=== PATIENT | female | born 1995 | race Caucasian/White ===

== ENCOUNTER 2017-06-12 19:37 | Inpatient (IN) | payer OTHER ==
--- NOTE | 2017-06-12 21:56 | RAD ---
INDICATION: Preeclampsia Comparison: First trimester ultrasound dated December 25, 2016. Multiple transabdominal real time images of the third trimester gravid uterus were obtained. This exam demonstrates a single intrauterine in the Cephalic presentation. heart and limb motion were noted. The heart rate was 146 beats per minute. The placenta was located anterior. The cervix is closed measuring 5.3 cm in length. The amniotic fluid volume appeared to be within normal limits measuring 11 cm. Biparietal diameter (cm) 8.6 which corresponds to a gestational age of 34 weeks and 4 days. Head circumference (cm) 31.4 which corresponds to a gestational age of 35 weeks and 2 days. abdominal circumference(cm) 30.2 which corresponds to a gestational age of 34 weeks and 2 day. femur length (cm) 6.9 which corresponds to a gestational age of 35 weeks and 2 days. The composite estimated gestational age was 34 weeks and 6 days. The estimated weight at this time is 2472 grams +/- 361 grams. The cardiac area, renal area, stomach, bladder and three-vessel cord are visualized and appear to be within normal limits. IMPRESSION: Normal appearing single intrauterine gestation with composite growth parameters corresponding to 34 weeks and 6 days.
[2017-06-12] MEDS ORDERED: Dinoprostone* 10 MG VAG.SUPP VAGINAL ONE (22:18)
[2017-06-12] MEDS ORDERED: Zolpidem TAB* 5 MG PO PRN (23:10)
[2017-06-13] MEDS: ValACYclovir (*) 500 MG TAB PO SCH (08:29)
[2017-06-13] MEDS: Sertraline* 25 MG TAB PO SCH (08:30)
[2017-06-13 08:39] LABS: Hematocrit 39 % (35-47); Hemoglobin 13.2 g/dl (12.0-16.0); Mean Corpuscular HGB Conc 34 g/dl (31-36); Mean Corpuscular Hemoglobin 30 pg (27-31); Mean Corpuscular Volume 90 fL (80-97); Mean Platelet Volume 9 um3 (7.4-10.4); Red Blood Count 4.35 10^6/ul (4.0-5.4); Red Cell Distribution Width 13 % (10.5-15); White Blood Count 15.7 10^3/ul (3.5-10.8)
[2017-06-13 08:55] LABS: BUN/Creatinine Ratio 17.4 (8-20); Calcium 8.3 mg/dL (8.6-10.3); EGFR African American 138.1 (>60); EGFR Non-African American 107.4 (>60); Globulin 3.2 g/dL (2-4); Total Bilirubin 0.4 mg/dL (0.2-1.0); Total Protein 6.2 g/dL (6.4-8.9); Uric Acid 8.5 mg/dL (2.3-6.6)
[2017-06-13 08:59] LABS: ROM Internal QC QC Line Present
[2017-06-13] MEDS ORDERED: Oxytocin in LR* 20 UNITS/1,000 ML BAG IVPB ONE (10:01)
[2017-06-13] MEDS ORDERED: Oxytocin in LR* 20 UNITS/1,000 ML BAG IVPB SCH ×2 (11:00→23:30)
[2017-06-13] MEDS ORDERED: fentaNYL* 50 MCG/ML 2 ML VIAL (100 MCG VIAL) ONE (12:51)
[2017-06-13] MEDS ORDERED: OBEPIDURAL* 250 ML ONE (12:51)
[2017-06-13] MEDS ORDERED: Sodium Citrate/Citric Acid* 15 ML UDC PO PRN (13:31)
[2017-06-13] MEDS ORDERED: Famotidine TAB* 20 MG PO PRN (13:31)
[2017-06-13] MEDS ORDERED: Phenylephrine IV* 40 MCG/ML 10 ML SYRINGE IV PUSH PRN ×2 (13:31)
[2017-06-13] MEDS ORDERED: OBEPIDURAL* 250 ML EPIDURAL SCH (14:00)
[2017-06-13] MEDS ORDERED: Dibucaine 1% 28.35 GM TUBE PR PRN (23:28)
[2017-06-13] MEDS ORDERED: Glycerin ADULT SUPP PR PRN (23:28)
[2017-06-13] MEDS ORDERED: Witch Hazel PAD* JAR TOPICAL PRN (23:28)
[2017-06-13] MEDS ORDERED: RHO D Immune Globulin (HUMAN)* 300 MCG = 1,500 I.U. INJ IM ONE (23:28)
[2017-06-13] MEDS ORDERED: Acetaminophen TAB* 325 MG PO PRN (23:28)
[2017-06-14] MEDS ORDERED: Lidocaine 1% MPF* 2 ML VIAL ONE (01:14)
[2017-06-14] MEDS: Ibuprofen TAB* 600 MG PO PRN ×3 (04:02→21:33)
[2017-06-14 07:20] LABS: Hematocrit 33 % (35-47); Hemoglobin 11.3 g/dl (12.0-16.0); Mean Corpuscular HGB Conc 34 g/dl (31-36); Mean Corpuscular Hemoglobin 30 pg (27-31); Mean Corpuscular Volume 88 fL (80-97); Mean Platelet Volume 9 um3 (7.4-10.4); Red Blood Count 3.75 10^6/ul (4.0-5.4); Red Cell Distribution Width 13 % (10.5-15); White Blood Count 18.8 10^3/ul (3.5-10.8)
[2017-06-14 07:51] LABS: Add Diff/Slide Review? Manual Diff Added; Comments Flag Yes
[2017-06-14] MEDS ORDERED: Simethicone CHEW TAB* 80 MG PO SCH (08:30)
[2017-06-14] MEDS: Docusate CAP* 100 MG PO SCH ×3 (08:57→21:33)
[2017-06-14] MEDS: Sertraline* 25 MG TAB PO SCH (08:57)
[2017-06-14] MEDS ORDERED: Ferrous Gluconate TAB* 324 MG TAB PO SCH (09:00)
[2017-06-14 09:18] LABS: Immature Granulocytes 2 % (0-9); Neutrophil % 74 % (38-83)
[2017-06-14 09:19] LABS: Add Path Review? YES; RBC Morphology Normal (Normal)
[2017-06-14] MEDS: ValACYclovir (*) 500 MG TAB PO SCH (09:22)
[2017-06-15] MEDS: Ibuprofen TAB* 600 MG PO PRN ×3 (07:23→20:09)
[2017-06-15] MEDS: Docusate CAP* 100 MG PO SCH ×3 (10:04→20:09)
[2017-06-15] MEDS: ValACYclovir (*) 500 MG TAB PO SCH (10:04)
[2017-06-15] MEDS: Sertraline* 25 MG TAB PO SCH (10:04)
[2017-06-16] MEDS: Sertraline* 25 MG TAB PO SCH (08:37)
[2017-06-16] MEDS: Docusate CAP* 100 MG PO SCH (08:37)
[2017-06-16] MEDS: ValACYclovir (*) 500 MG TAB PO SCH (08:38)
[2017-06-16 08:42] VITALS: BP 149/78
== END 2017-06-16 12:31 | disposition home or self-care (01) | DRG 560 ==
LOC: MCHOBOUT 19:37 → MCHOB 21:03
PROVIDERS: ADMIT Nurse Practitioner; ATTEND Midwife
PROC: 10E0XZZ Delivery of Products of Conception, External Approach (ICD-10-PCS; principal; 2017-06-13)
PROC: 3E033VJ Introduction of Other Hormone into Peripheral Vein, Percutaneous Approach (ICD-10-PCS; 2017-06-13)
PROC: 10907ZC Drainage of Amniotic Fluid, Therapeutic from Products of Conception, Via Natural or Artificial Opening (ICD-10-PCS; 2017-06-13)
PROC: 0HQ9XZZ Repair Perineum Skin, External Approach (ICD-10-PCS; 2017-06-13)
DX: O14.04 Mild to moderate pre-eclampsia, complicating childbirth (principal); O99.344 Other mental disorders complicating childbirth; F41.9 Anxiety disorder, unspecified; O99.824 Streptococcus B carrier state complicating childbirth; O70.0 First degree perineal laceration during delivery; O69.89X0 Labor and delivery complicated by other cord complications, not applicable or unspecified; O69.81X0 Labor and delivery complicated by cord around neck, without compression, not applicable or unspecified; Z3A.37 37 weeks gestation of pregnancy; Z37.0 Single live birth
CPT/HCPCS: 36415; 59200; 76805; 80053; 84112; 84550; 85025; 85060; 85461; 86850; 86900; 86901; A9270-GY; J2540; J2790; J3010

== ENCOUNTER 2018-08-04 08:21 | Emergency (ER) | payer OTHER ==
[2018-08-04 08:46] VITALS: BP 115/65
--- NOTE | 2018-08-04 09:54 | UC ---
Throat Pain/Nasal Roberto HPI - HPI Summary HPI Summary: 23-year-old female presents with 4 day history of general malaise, headache, and sore throat. States this morning she noticed some white spots on her tonsils. Associated with occasional nonproductive cough. Denies fever, chills , ear pain or drainage, dysphagia, chest pain, shortness of breath, abdominal pain, nausea, vomiting. - History of Current Complaint Chief Complaint: UCRespiratory Stated Complaint: SORE THROAT Time Seen by Provider: 08/04/18 09:42 Hx Obtained From: Patient Hx Last Menstrual Period: 07/14/18 Onset/Duration: Gradual Onset, Lasting Days - 4 Severity: Mild Pain Intensity: 5 Cough: Nonproductive Associated Signs & Symptoms: Negative: Dysphagia, Nasal Discharge, Fever, Vomiting, Rash - Allergies/Home Medications Allergies/Adverse Reactions: Allergies Allergy/AdvReac Type Severity Reaction Status Date / Time erythromycin base Allergy Unknown Verified 08/04/18 08:46 Reaction Details Home Medications: Home Medications Control 1 tab PO DAILY 08/04/18 [History Confirmed 08/04/18] PMH/Surg Hx/FS Hx/Imm Hx Previously Healthy: Yes - denies significant past medical history - Surgical History Surgical History: None - Family History Family History: Noncontributory - Social History Occupation: Works From/At Home Lives: With Family Alcohol Use: Occasionally Substance Use Type: None Smoking Status (MU): Former Smoker Type: Cigarettes Amount Used/How Often: 1/2 PPD - Immunization History Most Recent Influenza Vaccination: unsure Most Recent Pneumonia Vaccination: never Review of Systems Constitutional: Negative Skin: Negative Eyes: Negative ENT: Sore Throat Respiratory: Cough Cardiovascular: Negative Gastrointestinal: Negative Is Patient Immunocompromised?: No All Other Systems Reviewed And Are Negative: Yes Physical Exam Triage Information Reviewed: Yes Appearance: Well-Appearing, No Pain Distress, Well-Nourished Vital Signs: Initial Vital Signs Temp 97.1 F 08/04/18 08:41 Pulse 112 08/04/18 08:41 Resp 18 08/04/18 08:41 BP 115/65 08/04/18 08:41 Pulse Ox 100 08/04/18 08:41 Vital Signs Reviewed: Yes Eyes: Positive: Conjunctiva Clear. Negative: Discharge ENT: Positive: Pharyngeal erythema - Mild, TMs normal, Tonsillar swelling - 1+, Tonsillar exudate, Uvula midline. Negative: Nasal congestion, Nasal drainage, Trismus, Muffled voice, Hoarse voice, Sinus tenderness Neck: Positive: Supple, Nontender, No Lymphadenopathy Respiratory: Positive: Lungs clear, Normal breath sounds, No respiratory distress Cardiovascular: Positive: RRR, No Murmur Neurological: Positive: Alert Skin Exam: Normal Diagnostics - Laboratory Diagnostic Studies Completed/Ordered: rapid strep negative Throat Pain/Nasal Course/Dx - Course Course Of Treatment: 23-year-old female with 4 day history of general malaise, headache, and sore throat. Exam unremarkable except for some mild pharyngeal erythema, tonsillar erythema, and exudate. Rapid strep was negative. Symptoms likely a viral. Recommend symptomatic treatment. She is to follow-up with her primary care provider in 7 days if symptoms persist. Patient verbalizes understanding and agrees with plan of care. - Differential Dx/Diagnosis Provider Diagnoses: Viral pharyngitis Discharge - Sign-Out/Discharge Documenting (check all that apply): Patient Departure All imaging exams completed and their final reports reviewed: No Studies - Discharge Plan Condition: Stable Disposition: HOME Patient Education Materials: Pharyngitis (ED) Referrals: Jean-Pierre Pedro MD [Primary Care Provider] - 7 Days (If no improvement in symptoms.) Additional Instructions: Your rapid strep test in the clinic today was negative. Your symptoms are likely from a viral infection. Viruses do not respond to antibiotics and typically run their course over 7-10 days. Take over the counter acetaminophen (Tylenol) or ibuprofen (Advil, Motrin) as needed for pain or fever. Use salt water gargles several times throughout the days for your sore throat. Use Chloraseptic spray or Cepacol lozenges as needed for temporary pain relief. Follow-up with your primary care provider in 7 days if symptoms persist. Seek immediate medical attention if you have a persistent fever greater than 100.5 despite taking acetaminophen or ibuprofen, difficulty swallowing, difficulty breathing, or any worsening of symptoms. - Billing Disposition and Condition Condition: STABLE Disposition: Home - Attestation Statements Provider Attestation: Per institutional requirements, I have reviewed the chart, however, I was not consulted specifically or made aware of this patient by the midlevel provider. I did not personally evaluate, interact with , or disposition this patient.
== END 2018-08-04 10:12 | disposition home or self-care (01) ==
LOC: UCEAST 08:21
DX: J02.9 Acute pharyngitis, unspecified (principal); Z88.1 Allergy status to other antibiotic agents; Z87.891 Personal history of nicotine dependence
CPT/HCPCS: 87651; 99211; G0463

== ENCOUNTER 2019-02-18 15:23 | Emergency (ER) | payer OTHER ==
[2019-02-18 15:37] VITALS: BP 149/72
--- NOTE | 2019-02-18 16:42 | UC ---
Lower Extremity/Ankle HPI - HPI Summary HPI Summary: Patient complains of right ankle pain over the past week without any evidence of injury. 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 - History of Current Complaint Chief Complaint: UCLowerExtremity Stated Complaint: RT ANKLE INJURY Time Seen by Provider: 02/18/19 15:32 Hx Obtained From: Patient Hx Last Menstrual Period: [id number] ?: No Onset/Duration: Gradual Onset Severity Initially: Mild Severity Currently: Mild Pain Intensity: 3 Aggravating Factor(s): Standing, Ambulation Alleviating Factor(s): Rest Able to Bear Weight: Yes - Risk Factors Gout Risk Factors: Negative DVT Risk Factors: Negative Septic Arthritis Risk Factor: Negative - Allergies/Home Medications Allergies/Adverse Reactions: Allergies Allergy/AdvReac Type Severity Reaction Status Date / Time erythromycin base Allergy Unknown Verified 02/18/19 15:37 Reaction Details Home Medications: Home Medications Naproxen Sodium [Aleve] 500 mg PO Q12H 02/18/19 [History Confirmed 02/18/19] PMH/Surg Hx/FS Hx/Imm Hx Previously Healthy: Yes - Surgical History Surgical History: None - Family History Known Family History: Negative: Diabetes Family History: Noncontributory - Social History Alcohol Use: Weekly Substance Use Type: None Smoking Status (MU): Never Smoked Tobacco Type: Cigarettes Amount Used/How Often: 1/2 PPD - Immunization History Most Recent Influenza Vaccination: unsure Most Recent Pneumonia Vaccination: never Review of Systems All Other Systems Reviewed And Are Negative: Yes Motor: Positive: Negative Neurovascular: Positive: Negative Musculoskeletal: Positive: Other: - Patient points to pain on the lateral right ankle. Neurological: Positive: Negative Psychological: Positive: Negative Is Patient Immunocompromised?: No Physical Exam Triage Information Reviewed: Yes Appearance: Well-Appearing, No Pain Distress, Well-Nourished Vital Signs: Initial Vital Signs Temp 98.2 F 02/18/19 15:31 Pulse 88 02/18/19 15:31 Resp 16 02/18/19 15:31 BP 149/72 02/18/19 15:31 Pulse Ox 100 02/18/19 15:31 Vital Signs Reviewed: Yes Musculoskeletal: Positive: Strength Intact, ROM Intact, Other: - Good peripheral pulses, neuro sensation and capillary refill. Achilles is intact and nontender. The patient does have tenderness on firm palpation to the right ankle with mild swelling present. No bruising or deformity is noted. Neurological: Positive: Alert, Muscle Tone Normal Psychological Exam: Normal Lower Extremity Course/Dx - Course Course Of Treatment: Indication: Right ankle injury. 3 views of the right ankle demonstrate soft tissue swelling laterally. There is suggestion of a tiny nondisplaced fracture of the distal fibula. Clinical correlation is suggested. IMPRESSION: Question of a nondisplaced fracture of the distal fibula. Clinical correlation is suggested. A CAM boot was applied however the patient preferred not to have it applied until she gets home. No work until she sees an orthopedist on Thursday for follow -up. - Differential Dx/Diagnosis Provider Diagnosis: Ankle fracture Discharge - Sign-Out/Discharge Documenting (check all that apply): Patient Departure All imaging exams completed and their final reports reviewed: Yes - Discharge Plan Condition: Fair Disposition: HOME Patient Education Materials: Ankle Fracture (DC) Forms: *Work Release Referrals: Jean-Pierre Pedro MD [Primary Care Provider] - Carlos Morillo MD [Medical Doctor] - Additional Instructions: Keep the CAM boot on at all times. Call the orthopedist on Thursday and make an appointment to be seen. There is a "possible nondisplaced fracture of the distal fibula". Take Tylenol or Motrin for pain. No Work until cleared by the orthopedist. - Billing Disposition and Condition Condition: FAIR Disposition: Home
== END 2019-02-18 16:35 | disposition home or self-care (01) ==
LOC: UCEAST 15:23
DX: M25.571 Pain in right ankle and joints of right foot (principal); Z88.1 Allergy status to other antibiotic agents
CPT/HCPCS: 99212; G0463

== ENCOUNTER 2019-09-05 11:47 | Emergency (ER) | payer OTHER ==
--- NOTE | 2019-09-05 13:47 | UC ---
Throat Pain/Nasal Roberto HPI - HPI Summary HPI Summary: Patient presents to urgent care reporting head congestion and sore throat for the last 2 days. Patient with a slight cough nonproductive. Patient without fevers or chills. Patient has not taken any medication to treat this. Patient has an child who is also sick. Patient denies shortness of breath. No chest pain or abdominal pain. No nausea vomiting. Patient is eating and drinking but decreased appetite. 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 Patient's medications review this visit. Patient states she is not . - History of Current Complaint Chief Complaint: UCRespiratory Stated Complaint: COLD SYMPTOMS Time Seen by Provider: 09/05/19 13:40 Hx Obtained From: Patient Hx Last Menstrual Period: 08/05/19 Severity: Mild Pain Intensity: 3 Pain Scale Used: 0-10 Numeric - Allergies/Home Medications Allergies/Adverse Reactions: Allergies Allergy/AdvReac Type Severity Reaction Status Date / Time erythromycin base Allergy Unknown Verified 09/05/19 12:03 Reaction Details PMH/Surg Hx/FS Hx/Imm Hx Previously Healthy: Yes - Surgical History Surgical History: None - Family History Known Family History: Positive: Non-Contributory Negative: Diabetes Family History: Noncontributory - Social History Occupation: Employed Full-time Lives: With Family Alcohol Use: Weekly Substance Use Type: None Smoking Status (MU): Never Smoked Tobacco Type: Cigarettes Amount Used/How Often: 1/2 PPD - Immunization History Most Recent Influenza Vaccination: unsure Most Recent Pneumonia Vaccination: never Review of Systems All Other Systems Reviewed And Are Negative: Yes Constitutional: Positive: Fatigue ENT: Positive: Ear Ache, Nasal Discharge, Sinus Congestion, Sinus Pain/ Tenderness Respiratory: Positive: Cough Cardiovascular: Positive: Negative Gastrointestinal: Positive: Negative Is Patient Immunocompromised?: No Physical Exam - Summary Physical Exam Summary: Vital Signs Reviewed: Yes A+Ox3, no distress, congested Eyes: right eye injected, crust drainae, PILAR. EOM intact and full ENT: Hearing grossly normal scant fluid b/l TM, turbinates inflammed and boggy , + PND, mmoist, uvula midline, no exudate, no erythema Neck: Positive: Supple Respiratory: Positive: No respiratory distress, No accessory muscle use + CTA throughout no w/r Cardiovascular: RRR nl s1, s2 no m/r CBT <2 sec abd soft + BS nt/nd no guarding, no distension Musculoskeletal Exam: RUIZ x 4 without difficulty Strength Intact, ROM Intact Neurological: Positive: Alert, + sensation throughout Psychological: Positive: Normal Response To examiner Skin: Positive: no rash, no ecchymosis is Triage Information Reviewed: Yes Vital Signs: Initial Vital Signs Temp 97.3 F 09/05/19 11:59 Pulse 100 09/05/19 11:59 Resp 20 09/05/19 11:59 BP 129/76 09/05/19 11:59 Pulse Ox 100 09/05/19 11:59 Throat Pain/Nasal Course/Dx - Course Course Of Treatment: Patient presents to urgent care for evaluation of 2 days of progressive head congestion postnasal drip and cough. Patient states feels warm but no documented fever. Patient denies shortness of breath chest pain. Patient was sick contacts at work. Patient is not taking any medications to treat her symptoms. Clinical exam vital signs are stable. Patient with head congestion and serous otitis media bilateral ears. Patient also had some mild pulses. Lungs are clear. Discussed with patient recommend symptomatic treatment. For head congestion - flonase, decongestant secretion precaution abx for conjuntivitis return precautions discussed. Pt comfortable and in agreement with plan - Differential Dx/Diagnosis Provider Diagnosis: Conjunctivitis, Serous otitis media, Upper respiratory infection Discharge ED - Sign-Out/Discharge Documenting (check all that apply): Patient Departure All imaging exams completed and their final reports reviewed: No Studies - Discharge Plan Condition: Stable Disposition: HOME Prescriptions: Amoxicillin/Clavulanate TAB* [Augmentin TAB 875*] 875 mg PO BID #20 tab Fluticasone NASAL SPRAY 50MCG* [Flonase NASAL SPRAY 50MCG*] 2 spray BOTH NARES DAILY #1 btl Polymyx/Trimethoprim OPTH* [Polytrim OPHTH*] 2 drop RIGHT EYE TID #1 btl Patient Education Materials: Upper Respiratory Infection (ED), Serous Otitis Media (ED) Forms: *Gen. Provider Communication, *Work Release Referrals: Jean-Pierre Pedro MD [Primary Care Provider] - Terry Butler MD [Medical Doctor] - Additional Instructions: - Stay well hydrated. Drink plenty of non-alcoholic, non-caffinated beverages. - Alternate ibuprofen (Advil, Motrin) 600mg and Tylenol every 3 hours for pain or fever. Take with food. Do NOT take for more than 4-5 days. - These infections are spread by secretions - do NOT share eating or drinking utensils - clean items you share with other people such as cell phones, computer mouse, TV remote, computer tablets,etc. Once you start to feel better, change your toothbrush and your pillowcase - humidify the air in the room where you sleep - boil water, run a hot steam shower, vaporizer, cups of water by heat register - okay to take over the counter decongestant and cough medication - use nasal spray as prescribed - If your symptoms persist or worsen over the next 24 hours (fever, increased pain in your ear) it is recommended you start the antibiotics as prescribed. For your eye: Apply eye ointment as prescribed This is contagious - frequent, thorough hand washing is important If you develop vision changes, eye pain or other concerns it is recommended you follow-up with the eye doctor you have been given referral information - contact your doctor or return with questions or concerns - Billing Disposition and Condition Condition: STABLE Disposition: Home
[2019-09-05 14:45] VITALS: BP 117/67
== END 2019-09-05 14:40 | disposition home or self-care (01) ==
LOC: UCEAST 11:47
DX: H10.31 Unspecified acute conjunctivitis, right eye (principal); H65.93 Unspecified nonsuppurative otitis media, bilateral; J06.9 Acute upper respiratory infection, unspecified; Z88.1 Allergy status to other antibiotic agents
CPT/HCPCS: 87651; 99212; G0463